=== PATIENT | female | born 1965 | race Caucasian/White ===

== ENCOUNTER 2018-12-13 07:25 | Emergency (ER) | payer OTHER ==
[~2018-12-13] VITALS: Ht 165.1 cm; Wt 75.0 kg
[~2018-12-13 07:25] MED LIST: ALPR0.5T8 PO; AMLO-512 PO; ASPI81 PO; DIPH25 PO; FENT-76 TD; GABA-533 PO; HYDR-3971 PO; IBUP-2071 PO; TRAZ-220 PO
[2018-12-13] MEDS ORDERED: CLON.5 PO (07:39)
[2018-12-13] MEDS ORDERED: FENT12PAT TD (07:39)
[2018-12-13] MEDS ORDERED: HydrOXYzine PAMOATE 50 MG CAPSULE PO ONE (08:00)
[2018-12-13 08:23] LABS: BASOPHILS % (AUTO) 0.2 % (0.0-2.0); EOSINOPHILS % (AUTO) 6.9 % (1.0-6.0); HEMATOCRIT 38.7 % (36-46); LYMPHOCYTES # (AUTO) 2.2 K/uL (1.0-4.8); LYMPHOCYTES % (AUTO) 37.5 % (22.0-44.0); MEAN CORPUSCULAR HEMOGLOBIN 30.6 pg (26.0-34.0); MEAN CORPUSCULAR HGB CONC 33.6 G/dL (31.0-37.0); MEAN CORPUSCULAR VOLUME 91 fL (80-100); MONOCYTES # (AUTO) 0.6 K/uL (0.1-1.0); MONOCYTES % (AUTO) 10.2 % (2.0-9.0); NEUTROPHILS # (AUTO) 2.6 K/uL (1.8-7.7); NEUTROPHILS % (AUTO) 45.2 % (40.0-70.0); PLATELET COUNT (AUTO) 198 K/uL (150-450); RED BLOOD CELL COUNT(AUTO) 4.25 MIL/uL (4.00-5.20); RED CELL DISTRIBUTION WIDTH 12.6 % (11.5-14.5)
[2018-12-13 08:32] LABS: ANION GAP 7 mmol/L (8-16); CARBON DIOXIDE 30 mmol/L (22-29); CHLORIDE 104 mmol/L (98-107); CREATININE 0.63 mg/dL (0.60-1.30); GLOMERULAR FILTR. RATE CALC > 60 mL/min (>60); GLUCOSE,RANDOM 89 mg/dL (70-110); POTASSIUM 3.6 mmol/L (3.5-5.1); SODIUM SERUM 141 mmol/L (136-145); UREA NITROGEN, BLOOD 13 mg/dL (7-18)
[2018-12-13 08:34] LABS: AMPHET/METH SCREEN,URINE NEGATIVE (NEGATIVE); BARBITURATE SCREEN, URINE NEGATIVE (NEGATIVE); BENZODIAZEPINES SCREEN,URINE POSITIVE (NEGATIVE); CANNABINOID SCREEN,URINE NEGATIVE (NEGATIVE); COCAINE SCREEN,URINE NEGATIVE (NEGATIVE); METHADONE SCREEN, URINE NEGATIVE (NEGATIVE); OPIATE SCREEN,URINE POSITIVE (NEGATIVE)
[2018-12-13 08:37] LABS: PHENCYCLIDINE SCREEN,URINE NEGATIVE (NEGATIVE)
[2018-12-13 08:46] LABS: ALANINE AMINOTRANSFERASE 45 U/L (12-78); ALBUMIN 3.7 g/dL (3.4-5.0); ALKALINE PHOSPHATASE 89 U/L (46-116); ASPARTATE AMINOTRANSFERASE 38 U/L (15-37); BILIRUBIN,TOTAL 0.2 mg/dL (0.1-1.0); FREE T4 (FREE THYROXINE) 1.01 ng/dL (0.76-1.46); THYROID STIMULATING HORMONE 1.84 uIU/mL (0.36-3.74)
[2018-12-13 09:33] VITALS: BP 126/76
== END 2018-12-13 09:55 | disposition home or self-care (01) ==
LOC: EMS 07:28
DX: F41.9 Anxiety disorder, unspecified (principal); I10 Essential (primary) hypertension; M54.5 Low back pain; G89.29 Other chronic pain; H81.09 Meniere's disease, unspecified ear; F10.20 Alcohol dependence, uncomplicated; F17.210 Nicotine dependence, cigarettes, uncomplicated; Z86.19 Personal history of other infectious and parasitic diseases; Z79.899 Other long term (current) drug therapy; Z79.82 Long term (current) use of aspirin
CPT/HCPCS: 36415; 80053; 80307; 84439; 84443; 85025; 99284; G0480

== ENCOUNTER 2020-11-11 10:20 | Inpatient (IN) | payer MEDICAID, OTHER ==
[~2020-11-11] VITALS: Ht 165.1 cm; Wt 64.9 kg
[~2020-11-11 10:20] MED LIST changes: -ALPR0.5T8 PO; +AMLO-258 PO; -AMLO-512 PO; +ASPI-728 PO; -ASPI81 PO; +CLON-592 PO; -FENT-76 TD; +FENT12PAT TD; +GABA-1201 PO; -GABA-533 PO; -TRAZ-220 PO; +TRAZ-257 PO
[2020-11-11] MEDS ORDERED: MODA100T65 PO (11:04)
[2020-11-11] MEDS ORDERED: ALPR1TAB7 PO (11:04)
[2020-11-11] MEDS ORDERED: METH10 PO (11:04)
[2020-11-11] MEDS ORDERED: APIX5TAB PO (11:04)
[2020-11-11] MEDS ORDERED: FLEC50 PO (11:04)
[2020-11-11 11:50] LABS: AMPHET/METH SCREEN,URINE NEGATIVE (NEGATIVE); BARBITURATE SCREEN, URINE NEGATIVE (NEGATIVE); BENZODIAZEPINES SCREEN,URINE POSITIVE (NEGATIVE); CANNABINOID SCREEN,URINE NEGATIVE (NEGATIVE); COCAINE SCREEN,URINE NEGATIVE (NEGATIVE); METHADONE SCREEN, URINE POSITIVE (NEGATIVE); OPIATE SCREEN,URINE NEGATIVE (NEGATIVE); PHENCYCLIDINE SCREEN,URINE NEGATIVE (NEGATIVE)
[2020-11-11 11:52] LABS: BASOPHILS % (AUTO) 0.2 % (0.0-2.0); EOSINOPHILS % (AUTO) 0.1 % (1.0-6.0); HEMATOCRIT 38.7 % (36-46); HEMOGLOBIN 12.8 g/dL (12.0-16.0); LYMPHOCYTES % (AUTO) 18.4 % (22.0-44.0); MEAN CORPUSCULAR HEMOGLOBIN 30.5 pg (26.0-34.0); MEAN CORPUSCULAR VOLUME 93 fL (80-100); MONOCYTES # (AUTO) 0.1 K/uL (0.1-1.0); MONOCYTES % (AUTO) 2.5 % (2.0-9.0); NEUTROPHILS # (AUTO) 4.4 K/uL (1.8-7.7); NEUTROPHILS % (AUTO) 78.8 % (40.0-70.0); PLATELET COUNT (AUTO) 209 K/uL (150-450); RED BLOOD CELL COUNT(AUTO) 4.18 MIL/uL (4.00-5.20); RED CELL DISTRIBUTION WIDTH 13.3 % (11.5-14.5)
[2020-11-11 12:02] LABS: ANION GAP 4 mmol/L (8-16); CALCIUM, TOTAL 9.2 mg/dL (8.8-10.5); CARBON DIOXIDE 30 mmol/L (22-29); CHLORIDE 100 mmol/L (98-107); GLOMERULAR FILTR. RATE CALC > 60 mL/min (>60); GLUCOSE,RANDOM 162 mg/dL (70-110); POTASSIUM 4.3 mmol/L (3.5-5.1); SODIUM SERUM 134 mmol/L (136-145); UREA NITROGEN, BLOOD 12 mg/dL (7-18)
[2020-11-11 12:19] LABS: ALANINE AMINOTRANSFERASE 29 U/L (12-78); ALKALINE PHOSPHATASE 116 U/L (46-116); ASPARTATE AMINOTRANSFERASE 21 U/L (15-37); BILIRUBIN,TOTAL 0.2 mg/dL (0.1-1.0); HCG,QUANTITATIVE 3 mIU/mL (0-6)
[2020-11-11] MEDS ORDERED: HALOPERIDOL 5 MG TABLET PO ONE (14:15)
[2020-11-11] MEDS ORDERED: LORazepam 2 MG TABLET PO ONE (14:15)
[2020-11-11] MEDS ORDERED: ZOLPIDEM TARTRATE 10 MG TABLET PO PRN (14:30)
[2020-11-11] MEDS ORDERED: ALBUTEROL SULFATE HFA 90 MCG/PUFF 8 GM INHALER IH ONE (14:45)
[2020-11-11] MEDS ORDERED: ACETAMINOPHEN 500 MG TABLET PO ONE (14:45)
[2020-11-11 15:15] LABS: COVID AG,FIA SOURCE NASOPHARYNGEAL
[2020-11-11] MEDS: LORazepam 2 MG TABLET PO PRN (19:19)
[2020-11-11] MEDS: HALOPERIDOL 5 MG TABLET PO PRN (19:20)
[2020-11-11 19:50] VITALS: BP 133/78
[2020-11-11] MEDS ORDERED: INFLUENZA VIRUS VACCINE QVS 2020-21 (6MO+)/PF 60 MCG/0.5 ML SYRINGE IM ONE (21:30)
[2020-11-12] MEDS: LORazepam 2 MG TABLET PO PRN ×2 (00:44→06:00)
[2020-11-12] MEDS: HALOPERIDOL 5 MG TABLET PO PRN (00:45)
[2020-11-12 00:58] VITALS: BP 124/76
[2020-11-12] MEDS ORDERED: METHADONE HCL 10 MG TABLET PO SCH (07:00)
[2020-11-12] MEDS ORDERED: MAG HYDROX/AL HYDROX/SIMETH ES 30 ML SUSPENSION UDCUP PO PRN (08:00)
[2020-11-12] MEDS ORDERED: DOCUSATE SODIUM 100 MG CAPSULE PO PRN (08:00)
[2020-11-12] MEDS ORDERED: LOPERAMIDE HCL 2 MG CAPSULE PO PRN (08:00)
[2020-11-12] MEDS ORDERED: ONDANSETRON HCL 4 MG TABLET PO PRN (08:00)
[2020-11-12] MEDS ORDERED: CloNIDine HCL 0.1 MG TABLET PO PRN (08:00)
[2020-11-12] MEDS ORDERED: ALBUTEROL SULFATE HFA 90 MCG/PUFF 8 GM INHALER IH PRN (08:00)
[2020-11-12] MEDS ORDERED: PETROLATUM,WHITE 28 GM JELLY TP PRN (08:00)
[2020-11-12] MEDS ORDERED: MAGNESIUM HYDROXIDE SUSPENSION 30 ML UDCUP PO PRN (08:00)
[2020-11-12] MEDS ORDERED: GuaiFENesin/D-METHORPHAN [SUGAR-FREE] 200-20MG/10 ML SYRUP UDCUP PO PRN (08:00)
[2020-11-12] MEDS ORDERED: NICOTINE 14 MG/24 HOUR PATCH TD PRN (08:00)
[2020-11-12] MEDS ORDERED: ACETAMINOPHEN 325 MG TABLET PO PRN (08:00)
[2020-11-12] MEDS ORDERED: APIXABAN 5 MG TABLET PO SCH (09:00)
[2020-11-12] MEDS ORDERED: METOPROLOL TARTRATE 25 MG TABLET PO SCH (09:00)
[2020-11-12] MEDS ORDERED: FLECAINIDE ACETATE 50 MG TABLET PO SCH (09:00)
[2020-11-12 09:31] VITALS: BP 116/78
[2020-11-12] MEDS ORDERED: FLEC50 PO (11:41)
[2020-11-12] MEDS ORDERED: METO25 PO (11:41)
[2020-11-12 12:50] VITALS: BP 122/91
== END 2020-11-12 14:15 | disposition home or self-care (01) | DRG 751 ==
LOC: EMS 10:20 → B3A 17:15
DX: F33.2 Major depressive disorder, recurrent severe without psychotic features (principal); F11.20 Opioid dependence, uncomplicated; I10 Essential (primary) hypertension; M19.90 Unspecified osteoarthritis, unspecified site; J44.9 Chronic obstructive pulmonary disease, unspecified; F43.21 Adjustment disorder with depressed mood; E87.1 Hypo-osmolality and hyponatremia; Z20.828 Contact with and (suspected) exposure to other viral communicable diseases; F41.9 Anxiety disorder, unspecified; M54.9 Dorsalgia, unspecified; G89.29 Other chronic pain; I48.20 Chronic atrial fibrillation, unspecified; R45.851 Suicidal ideations; Z79.01 Long term (current) use of anticoagulants; Z87.891 Personal history of nicotine dependence
CPT/HCPCS: 87426; 90686; 94640; G0480; J3535

== ENCOUNTER 2020-12-17 09:18 | Inpatient (IN) | payer MEDICAID, OTHER ==
[~2020-12-17] VITALS: Ht 165.1 cm; Wt 65.5 kg
[2020-12-17] VITALS (7 sets, daily range): BP systolic 96–129; BP diastolic 69–87
[~2020-12-17 09:18] MED LIST changes: -AMLO-258 PO; +APIX5TAB PO; -ASPI-728 PO; -CLON-592 PO; -DIPH25 PO; -FENT12PAT TD; +FLEC50 PO; -GABA-1201 PO; -HYDR-3971 PO; -IBUP-2071 PO; +METO25 PO; -TRAZ-257 PO
[2020-12-17 11:35] LABS: BASOPHILS % (AUTO) 0.9 % (0.0-2.0); EOSINOPHILS % (AUTO) 2.7 % (1.0-6.0); HEMATOCRIT 38.9 % (36-46); HEMOGLOBIN 13.2 g/dL (12.0-16.0); LYMPHOCYTES # (AUTO) 1.7 K/uL (1.0-4.8); LYMPHOCYTES % (AUTO) 23.6 % (22.0-44.0); MEAN CORPUSCULAR HGB CONC 33.8 G/dL (31.0-37.0); MEAN CORPUSCULAR VOLUME 92 fL (80-100); MONOCYTES # (AUTO) 0.5 K/uL (0.1-1.0); MONOCYTES % (AUTO) 7.5 % (2.0-9.0); NEUTROPHILS # (AUTO) 4.6 K/uL (1.8-7.7); NEUTROPHILS % (AUTO) 65.3 % (40.0-70.0); PLATELET COUNT (AUTO) 204 K/uL (150-450); RED BLOOD CELL COUNT(AUTO) 4.24 MIL/uL (4.00-5.20); RED CELL DISTRIBUTION WIDTH 12.5 % (11.5-14.5)
[2020-12-17] MEDS ORDERED: LORazepam 2 MG/ML VIAL IM ONE (11:45)
[2020-12-17 11:57] LABS: ANION GAP 5 mmol/L (8-16); CARBON DIOXIDE 31 mmol/L (22-29); CHLORIDE 101 mmol/L (98-107); CREATININE 0.75 mg/dL (0.60-1.30); GLOMERULAR FILTR. RATE CALC > 60 mL/min (>60); GLUCOSE,RANDOM 123 mg/dL (70-110); POTASSIUM 3.7 mmol/L (3.5-5.1); SODIUM SERUM 137 mmol/L (136-145); UREA NITROGEN, BLOOD 14 mg/dL (7-18)
[2020-12-17 12:07] LABS: COVID AG,FIA SOURCE NASOPHARYNGEAL
[2020-12-17 12:10] LABS: ALANINE AMINOTRANSFERASE 37 U/L (12-78); ALBUMIN 3.9 g/dL (3.4-5.0); ALKALINE PHOSPHATASE 117 U/L (46-116); ASPARTATE AMINOTRANSFERASE 28 U/L (15-37); BILIRUBIN,TOTAL 0.3 mg/dL (0.1-1.0); TOTAL PROTEIN, SERUM 8.7 g/dL (6.4-8.2)
[2020-12-17 12:29] LABS: AMPHET/METH SCREEN,URINE NEGATIVE (NEGATIVE); BARBITURATE SCREEN, URINE NEGATIVE (NEGATIVE); BENZODIAZEPINES SCREEN,URINE POSITIVE (NEGATIVE); CANNABINOID SCREEN,URINE NEGATIVE (NEGATIVE); COCAINE SCREEN,URINE NEGATIVE (NEGATIVE); METHADONE SCREEN, URINE POSITIVE (NEGATIVE); OPIATE SCREEN,URINE NEGATIVE (NEGATIVE)
[2020-12-17 12:32] LABS: PHENCYCLIDINE SCREEN,URINE NEGATIVE (NEGATIVE)
[2020-12-17] MEDS ORDERED: ZOLPIDEM TARTRATE 10 MG TABLET PO PRN (12:45)
[2020-12-17] MEDS ORDERED: ALBUTEROL SULFATE HFA 90 MCG/PUFF 8 GM INHALER IH PRN (15:30)
[2020-12-17] MEDS ORDERED: ChlordiazePOXIDE HCL 25 MG CAPSULE PO PRN (16:15)
[2020-12-17] MEDS: ChlordiazePOXIDE HCL 25 MG CAPSULE PO PRN (16:43)
[2020-12-17] MEDS ORDERED: TraZODone HCL 150 MG TABLET PO SCH (21:00)
[2020-12-17] MEDS ORDERED: TraZODone HCL 100 MG TABLET PO SCH (21:00)
[2020-12-18] VITALS (9 sets, daily range): BP systolic 96–127; BP diastolic 59–72
[2020-12-18] MEDS: ChlordiazePOXIDE HCL 25 MG CAPSULE PO PRN ×2 (04:49→07:09)
[2020-12-18] MEDS ORDERED: ChlordiazePOXIDE HCL 25 MG CAPSULE PO PRN ×2 (07:00)
[2020-12-18] MEDS ORDERED: IBUPROFEN 400 MG TABLET PO PRN (07:00)
[2020-12-18] MEDS ORDERED: MAG HYDROX/AL HYDROX/SIMETH ES 30 ML SUSPENSION UDCUP PO PRN (07:00)
[2020-12-18] MEDS ORDERED: PETROLATUM,WHITE 28 GM JELLY TP PRN (07:00)
[2020-12-18] MEDS ORDERED: LOPERAMIDE HCL 2 MG CAPSULE PO PRN (07:00)
[2020-12-18] MEDS ORDERED: GuaiFENesin/D-METHORPHAN [SUGAR-FREE] 200-20MG/10 ML SYRUP UDCUP PO PRN (07:00)
[2020-12-18] MEDS ORDERED: ALBUTEROL SULFATE HFA 90 MCG/PUFF 8 GM INHALER IH PRN (07:00)
[2020-12-18] MEDS ORDERED: DOCUSATE SODIUM 100 MG CAPSULE PO PRN (07:00)
[2020-12-18] MEDS ORDERED: ACETAMINOPHEN 325 MG TABLET PO PRN (07:00)
[2020-12-18] MEDS ORDERED: CloNIDine HCL 0.1 MG TABLET PO PRN (07:00)
[2020-12-18] MEDS ORDERED: ONDANSETRON HCL 4 MG TABLET PO PRN (07:00)
[2020-12-18] MEDS ORDERED: MAGNESIUM HYDROXIDE SUSPENSION 30 ML UDCUP PO PRN (07:00)
[2020-12-18 07:24] LABS: CHOL/HDL RATIO 2.4 (3.9-5.7)
[2020-12-18] MEDS ORDERED: ChlordiazePOXIDE HCL 25 MG CAPSULE PO SCH (09:00)
[2020-12-18] MEDS: ChlordiazePOXIDE HCL 25 MG CAPSULE PO SCH ×4 (10:11→20:09)
[2020-12-18] MEDS: NICOTINE 14 MG/24 HOUR PATCH TD PRN (10:13)
[2020-12-18] MEDS: OXcarbazepine 300 MG TABLET PO SCH (10:31)
[2020-12-18] MEDS: METHADONE HCL 10 MG/5 ML SOLUTION ORAL.SYG PO SCH (10:31)
[2020-12-18] MEDS: APIXABAN 5 MG TABLET PO SCH (16:42)
[2020-12-18] MEDS: FLECAINIDE ACETATE 50 MG TABLET PO SCH (16:42)
[2020-12-18] MEDS ORDERED: TraZODone HCL 100 MG TABLET PO SCH (21:00)
[2020-12-19] MEDS: ChlordiazePOXIDE HCL 25 MG CAPSULE PO PRN ×2 (02:14→10:35)
[2020-12-19 02:15] VITALS: BP 97/77
[2020-12-19] MEDS: ACETAMINOPHEN 325 MG TABLET PO PRN ×2 (02:15→10:29)
[2020-12-19] MEDS: NICOTINE 14 MG/24 HOUR PATCH TD PRN (07:02)
[2020-12-19] MEDS: METHADONE HCL 10 MG/5 ML SOLUTION ORAL.SYG PO SCH (08:22)
[2020-12-19] MEDS: ChlordiazePOXIDE HCL 25 MG CAPSULE PO SCH ×2 (08:23→12:19)
[2020-12-19] MEDS: APIXABAN 5 MG TABLET PO SCH (08:23)
[2020-12-19] MEDS: FLECAINIDE ACETATE 50 MG TABLET PO SCH (08:23)
[2020-12-19] MEDS: OXcarbazepine 300 MG TABLET PO SCH (08:23)
[2020-12-19 09:20] VITALS: BP 113/71
[2020-12-19 10:29] VITALS: BP 108/75
[2020-12-19] MEDS ORDERED: OXCA300T57 PO (10:53)
[2020-12-19] MEDS ORDERED: TRAZ-257 PO (10:53)
[2020-12-19 11:29] VITALS: BP 112/73
[2020-12-20] MEDS ORDERED: ChlordiazePOXIDE HCL 10 MG CAPSULE PO PRN ×3 (07:00)
[2020-12-20] MEDS ORDERED: ChlordiazePOXIDE HCL 10 MG CAPSULE PO SCH ×3 (09:00)
[2020-12-21] MEDS ORDERED: ChlordiazePOXIDE HCL 10 MG CAPSULE PO PRN ×3 (07:00)
== END 2020-12-19 12:45 | disposition home or self-care (01) | DRG 754 ==
LOC: EMS 09:18 → 3EI 13:20
PROVIDERS: ADMIT Psychiatry & Neurology Child & Adolescent Psychiatry; ATTEND Psychiatry & Neurology Child & Adolescent Psychiatry
DX: F32.9 Major depressive disorder, single episode, unspecified (principal); F41.0 Panic disorder [episodic paroxysmal anxiety]; F41.1 Generalized anxiety disorder; I10 Essential (primary) hypertension; F17.200 Nicotine dependence, unspecified, uncomplicated; I48.20 Chronic atrial fibrillation, unspecified; Z20.822 Contact with and (suspected) exposure to COVID-19; J44.9 Chronic obstructive pulmonary disease, unspecified; F11.20 Opioid dependence, uncomplicated; Z79.899 Other long term (current) drug therapy
CPT/HCPCS: 87426; 93005; 99285; G0480; J2060; 36415-L1; 36415-TC; 71045-TC; 80061-TC